=== PATIENT | male | born 1980 | race Caucasian/White ===

== ENCOUNTER 2018-09-15 12:42 | Emergency (ER) | payer SELFPAY ==
[~2018-09-15] VITALS: Ht 172.7 cm; Wt 92.3 kg
[2018-09-15 14:45] VITALS: BP 128/72
== END 2018-09-15 14:59 | disposition home or self-care (01) ==
LOC: EMS 12:43
DX: K57.92 Diverticulitis of intestine, part unspecified, without perforation or abscess without bleeding (principal)